=== PATIENT | female | born 1950 | race Caucasian/White ===

== ENCOUNTER 2020-11-28 23:52 | Inpatient (IN) | payer MEDICARE, OTHER ==
[~2020-11-28] VITALS: Ht 157.5 cm; Wt 49.0 kg
[2020-11-29] MEDS ORDERED: HYDR25TA4 PO (02:51)
[2020-11-29] MEDS ORDERED: DOCU250C14 PO (02:52)
[2020-11-29] MEDS ORDERED: BENA40TA8 PO (02:53)
[2020-11-29] MEDS ORDERED: LEVO88TA5 PO (02:54)
[2020-11-29] MEDS ORDERED: AMLO-213 PO (02:55)
[2020-11-29] MEDS ORDERED: ROSU10TA29 PO (02:56)
[2020-11-29] MEDS ORDERED: LAMO200T10 PO (02:58)
[2020-11-29] MEDS ORDERED: SITA25TA PO (02:59)
[2020-11-29] MEDS ORDERED: ARIP5TAB10 PO (03:00)
[2020-11-29] MEDS ORDERED: DIPH50CA4 PO (03:02)
[2020-11-29] MEDS ORDERED: OXCA150T13 PO (03:04)
[2020-11-29] MEDS ORDERED: MAGNESIUM HYDROXIDE 30 ML UDC PO PRN (03:30)
[2020-11-29] MEDS ORDERED: IBUP-1955 PO (03:31)
[2020-11-29 03:40] VITALS: BP 130/82
[2020-11-29] MEDS ORDERED: BLOOD SUGAR DIAGNOSTIC 1 EACH STRIP IN ONE (04:00)
--- NOTE | 2020-11-29 04:02 | NUR ---
ADMISSION NOTES: ADMITTED THIS 70Y/O FEMALE PATIENT ADMIT FROM [facility] /INTIALLY FROM HOME, PT. ADMITTED TO GPS ON 5150 HOLD , PER HOLD PT. REPORT BEING LONELY NOT HAVING ANY SOCIAL LIFE WANTED TO END IT ALL ,UPON FACE TO FACE ASSESSMENT PATIENT IS A&O X 2,3 DISHELVED ,PARANOID , DISORGNIZED ,DISHELVED ,EASILY GETS AGITATED ,DENIES SI /HI AT THIS TIME, PT. IS POOR HISTORIAN, POOR INSIGHT ,POOR JUDGEMENT , PT. REFUSED TO SIGNS ADMISSION CONSENT PAPERS , DUE TO MENTAL STATUS / DEPRESSED ,BOTH MD AWARE AND NOTIFIED OF THE ADMISSION, BELONGINGS CONTRABAND WERE DONE ,PT. RIGHTS DISCUSS BY MEDICAL RECORDS ANALYST , PROVIDE THE PT. WITH HANDBOOK, AND MEDICATIONS GUIDE, ENVIRONMENTAL SAFETY CHECK DONE, ENCOURAGED PT. VERBALIZED ANY FEELING CONCERN TO STAFF, ORIENT TO UNIT POLICY, NO ACUTE DISTRESS NOTED,VITAL SIGNS WNL ,DENIES ANY PAIN AT THIS TIME,WILL CONTINUE TO MONITOR FOR Q15 SAFETY AND BEHAVIOR.
[2020-11-29] MEDS ORDERED: diphenhydrAMINE HCL 50 MG CAPSULE PO PRN (07:00)
[2020-11-29 08:00] VITALS: BP 116/73
[2020-11-29] MEDS ORDERED: ENSURE ENLIVE CHOC 237 ML CAN PO SCH (08:00)
[2020-11-29] MEDS: LEVOTHYROXINE SODIUM 88 MCG TABLET PO SCH (08:30)
[2020-11-29] MEDS: DOCUSATE SODIUM 250 MG CAPSULE PO SCH (08:31)
[2020-11-29] MEDS: AMLODIPINE BESYLATE 10 MG TABLET PO SCH ×3 (08:31→08:44)
[2020-11-29] MEDS: HYDROCHLOROTHIAZIDE 25 MG TABLET PO SCH (08:31)
[2020-11-29] MEDS: LINAGLIPTIN 5 MG TABLET PO SCH ×3 (08:32→10:58)
[2020-11-29] MEDS: BENAZEPRIL HCL 20 MG TABLET PO SCH (08:34)
[2020-11-29] MEDS ORDERED: Medication Not On Formulary EA (Rosuvastatin Calcium 1 TAB) PO SCH (09:00)
--- NOTE | 2020-11-29 10:58 | NUR ---
Called the pharmacy and asked if we are carrying Januvia and per pharmacist no we are not carrying and we are carrying Tradjenta. Spoke to the pt. and was notified that we are not carrying Januvia and agreed to take Trajenta.
[2020-11-29] MEDS: ENSURE ENLIVE CHOC 237 ML CAN PO SCH ×2 (12:20→17:02)
[2020-11-29] MEDS: ACETAMINOPHEN 325 MG TABLET PO PRN (14:05)
[2020-11-29 16:00] VITALS: BP 139/51
[2020-11-29 20:18] VITALS: BP 127/69
[2020-11-29] MEDS: ATORVASTATIN 10 MG TABLET PO SCH (22:00)
--- NOTE | 2020-11-29 22:08 | NUR ---
RN NOTES: REFUSAL OF MEDICATION PT. REFUSED NIGHT SCHEDULE LIPITOR 20 MG PO X3, PT. STRONGLY REFUSED ,RISKS AND BENFITS EXPLINED, PER PT. NO LIPITOR PLEASE I AM OK ,WILL CONTINUE TO MONITOR.
[2020-11-29] MEDS: MIRTAZAPINE 15 MG TABLET PO SCH (22:48)
[2020-11-29] MEDS: LamoTRIgine 100 MG TABLET PO SCH (22:48)
[2020-11-30] MEDS: TEMAZEPAM 7.5 MG CAPSULE PO PRN (00:03)
--- NOTE | 2020-11-30 00:05 | NUR ---
RN NOTES :INSOMNIA PT.C/O UNABLE TO SLEEP, RESTORIL 7.5 MG PO PRN GIVEN PER PT.REQUEST, WILL CONTINUE TO MONITOR.
[2020-11-30 06:07] LABS: BASOPHILS % (AUTO) 0.6 % (0.0-2.0); HEMATOCRIT 40 % (33-45); HEMOGLOBIN 13.3 g/dL (11.5-14.8); LYMPHOCYTES # (AUTO) 1.5 /CMM (0.8-4.8); LYMPHOCYTES % (AUTO) 25.2 % (20.0-44.0); MEAN CORPUSCULAR HGB CONC 34 g/dl (31.0-36.0); MEAN CORPUSCULAR VOLUME 90 fL (82-100); MONOCYTES # (AUTO) 0.6 /CMM (0.1-1.30); MONOCYTES % (AUTO) 10.1 % (2.0-12.0); NEUTROPHILS # (AUTO) 3.7 /CMM (1.8-8.9); NEUTROPHILS % (AUTO) 63.1 % (43.0-81.0); PLATELET COUNT (AUTO) 264 /CMM (150-450); RED BLOOD CELL COUNT(AUTO) 4.39 MIL/uL (4.0-5.2); WHITE BLOOD COUNT (AUTO) 5.8 K/uL (4.3-11.0)
[2020-11-30 06:58] LABS: ALBUMIN 3.8 g/dL (3.4-5.0); BILIRUBIN,TOTAL 0.3 mg/dL (0.2-1.0); CALCIUM, SERUM 10.3 mg/dL (8.5-10.1); MAGNESIUM 2.3 mg/dL (1.8-2.4); POTASSIUM 3.5 mmol/L (3.5-5.1); THYROID STIMULATING HORMONE 0.376 uIU/mL (0.358-3.74); TOTAL PROTEIN, SERUM 7.6 g/dL (6.4-8.2)
[2020-11-30] MEDS: LEVOTHYROXINE SODIUM 88 MCG TABLET PO SCH (07:36)
[2020-11-30 08:00] VITALS: BP 116/73
[2020-11-30] MEDS: DOCUSATE SODIUM 250 MG CAPSULE PO SCH (08:09)
[2020-11-30] MEDS: LINAGLIPTIN 5 MG TABLET PO SCH (08:09)
[2020-11-30] MEDS: BENAZEPRIL HCL 20 MG TABLET PO SCH (08:10)
[2020-11-30] MEDS: HYDROCHLOROTHIAZIDE 25 MG TABLET PO SCH (08:10)
[2020-11-30] MEDS: AMLODIPINE BESYLATE 10 MG TABLET PO SCH (08:11)
[2020-11-30] MEDS: ENSURE ENLIVE CHOC 237 ML CAN PO SCH ×3 (08:11→16:05)
[2020-11-30] MEDS: ACETAMINOPHEN 325 MG TABLET PO PRN ×2 (09:23→15:51)
--- NOTE | 2020-11-30 15:50 | NUR ---
RN-CO: TYLENOL 650 MG PO GIVEN TO PT FOR C/O TOOTHACHE.
[2020-11-30 16:00] VITALS: BP 135/69
[2020-11-30] MEDS: MAG HYDROX/AL HYDROX/SIMETH 30 ML UDC PO PRN (18:36)
[2020-11-30 20:00] VITALS: BP 140/76
[2020-11-30] MEDS: LamoTRIgine 100 MG TABLET PO SCH (22:27)
[2020-11-30] MEDS: ATORVASTATIN 10 MG TABLET PO SCH (22:27)
[2020-11-30] MEDS: MIRTAZAPINE 15 MG TABLET PO SCH (22:27)
[2020-11-30] MEDS: LORAZEPAM 0.5 MG TABLET PO PRN (23:44)
--- NOTE | 2020-11-30 23:50 | NUR ---
GPS RN NOTES: PATIENT C/O ANXIETY. ATIVAN 0.5MG/1TAB GIVEN PO PRN ORDERED AT 2344. PATIENT IS CURRENTLY LAYING ON BED. WILL CONTINUE TO MONITOR.
[2020-12-01] MEDS: ACETAMINOPHEN 325 MG TABLET PO PRN ×2 (00:21→06:18)
--- NOTE | 2020-12-01 06:53 | NUR ---
GPS RN CLOSING NOTES: PATIENT LAYING ON BED AWAKE, A/O X3. SLEPT 5HOURS THIS SHIFT. NO S/S OF DISTRESS. RESPIRATION EVEN AND UNLABORED WITH EQUAL RISE AND FALL OF THE CHEST ON ROOM AIR. OFFERED FLUID TOLERATED. ALL PATIENT CARE NEEDS HAVE BEEN MET ANTICIPATED. WILL CONTINUE TO MONITOR FOR SAFETY, MOOD AND BEHAVIOR AND ENDORSE TO AM SHIFT.
[2020-12-01 08:00] VITALS: BP 153/78
[2020-12-01] MEDS: DOCUSATE SODIUM 250 MG CAPSULE PO SCH (08:02)
[2020-12-01] MEDS: AMLODIPINE BESYLATE 10 MG TABLET PO SCH (08:02)
[2020-12-01] MEDS: LEVOTHYROXINE SODIUM 88 MCG TABLET PO SCH (08:02)
[2020-12-01] MEDS: LINAGLIPTIN 5 MG TABLET PO SCH (08:03)
[2020-12-01] MEDS: ENSURE ENLIVE CHOC 237 ML CAN PO SCH ×3 (08:03→17:08)
[2020-12-01] MEDS: HYDROCHLOROTHIAZIDE 25 MG TABLET PO SCH (08:03)
[2020-12-01] MEDS: BENAZEPRIL HCL 20 MG TABLET PO SCH (08:03)
[2020-12-01] MEDS: LORAZEPAM 0.5 MG TABLET PO PRN (12:40)
--- NOTE | 2020-12-01 12:40 | NUR ---
RN NOTE: ANXIETY PT C/O INCREASING ANXIETY. PT REQUESTING ATIVAN. ATIVAN 0.5 MG PO PRN ADMINISTERED.
[2020-12-01 16:00] VITALS: BP 121/56
[2020-12-01 20:00] VITALS: BP 102/66
[2020-12-01] MEDS: MIRTAZAPINE 15 MG TABLET PO SCH (21:14)
[2020-12-01] MEDS: ATORVASTATIN 10 MG TABLET PO SCH (21:14)
[2020-12-01] MEDS: LamoTRIgine 100 MG TABLET PO SCH (21:14)
[2020-12-01] MEDS: TEMAZEPAM 7.5 MG CAPSULE PO PRN (21:46)
[2020-12-02] MEDS: MAG HYDROX/AL HYDROX/SIMETH 30 ML UDC PO PRN (00:32)
--- NOTE | 2020-12-02 00:32 | NUR ---
GPS RN NOTES: PATIENT C/O INDIGESTION. MAALOX 30ML/1CUP GIVEN PO PRN ORDERED AT 0032. WILL CONTINUE TO MONITOR.
--- NOTE | 2020-12-02 06:45 | NUR ---
GPS RN CLOSING NOTES: PATIENT LAYING ON BED AWAKE, A/O X3. SLEPT 3HOURS THIS SHIFT. NO S/S OF DISTRESS. RESPIRATION EVEN AND UNLABORED WITH EQUAL RISE AND FALL OF THE CHEST ON ROOM AIR. OFFERED FLUID TOLERATED. ALL PATIENT CARE NEEDS HAVE BEEN MET ANTICIPATED. WILL CONTINUE TO MONITOR FOR SAFETY, MOOD AND BEHAVIOR AND ENDORSE TO AM SHIFT.
[2020-12-02] MEDS: ENSURE ENLIVE CHOC 237 ML CAN PO SCH ×3 (08:25→17:38)
[2020-12-02] MEDS: LINAGLIPTIN 5 MG TABLET PO SCH (09:00)
[2020-12-02] MEDS ORDERED: clonazePAM 0.5 MG TABLET PO SCH (09:00)
[2020-12-02] MEDS: LEVOTHYROXINE SODIUM 88 MCG TABLET PO SCH (09:41)
[2020-12-02] MEDS: AMLODIPINE BESYLATE 10 MG TABLET PO SCH (09:41)
[2020-12-02] MEDS: DOCUSATE SODIUM 250 MG CAPSULE PO SCH (09:41)
[2020-12-02] MEDS: HYDROCHLOROTHIAZIDE 25 MG TABLET PO SCH (09:42)
[2020-12-02] MEDS: clonazePAM 0.5 MG TABLET PO SCH ×2 (10:00→17:39)
[2020-12-02 10:13] VITALS: BP 129/83
--- NOTE | 2020-12-02 11:58 | NUR ---
UPSET IN AM AND VERBALIZED AFRAID OF HER RM. SO RELOCATED TO [id number] HAPPIER.
[2020-12-02] MEDS: LORAZEPAM 0.5 MG TABLET PO PRN (13:30)
--- NOTE | 2020-12-02 13:30 | NUR ---
Family Contact: SW called the pts son, Phillip Salgado ([phone]), and left a message stating that the SW would like to discuss the pts treatment.
--- NOTE | 2020-12-02 13:32 | NUR ---
GIVEN ATIVAN FOR ANXIOUSNESS.
--- NOTE | 2020-12-02 13:56 | NUR ---
Initial Discharge Plan: Pt currently resides in an apartment by herself located at [address] [place] [address], [facility], [place] [address]; ([phone]). Per pt, she does not want to be alone. SW discussed SNF placement with the pt and she agreed. REYNA will work with the pt and the MD regarding appropriate discharge planning. SW will form a safe and proper discharge.
--- NOTE | 2020-12-02 14:47 | NUR ---
BP AT THIS TIME 118/62, HEART RATE 104.C/O HEADACHE.
[2020-12-02] MEDS: ACETAMINOPHEN 325 MG TABLET PO PRN ×2 (14:58→22:12)
--- NOTE | 2020-12-02 15:10 | NUR ---
GIVEN TYLENOL FOR HEADACHE.
[2020-12-02 16:00] VITALS: BP 126/67
[2020-12-02] MEDS: BENAZEPRIL HCL 20 MG TABLET PO SCH (16:13)
--- NOTE | 2020-12-02 16:17 | NUR ---
Family Contact: Pts son, Phillip Salgado ([phone]), contacted the SW and the SW discussed the pts treatment with him. He stated that the pt has been in a SNF before and left after three days because she did not like it. He expressed his concern that she will just leave again and SW stated that she will have daily conversations with the pt regarding placement. SW also stated that she could look into salvage determiner placements and discuss that with the pt and he agreed. SW will keep the pts son updated.
--- NOTE | 2020-12-02 18:30 | NUR ---
no change in status.
[2020-12-02 20:00] VITALS: BP 120/58
[2020-12-02] MEDS ORDERED: clonazePAM 0.5 MG TABLET PO ONE (20:30)
[2020-12-02] MEDS: LamoTRIgine 100 MG TABLET PO SCH (21:07)
[2020-12-02] MEDS: ATORVASTATIN 10 MG TABLET PO SCH (21:07)
[2020-12-02] MEDS: MIRTAZAPINE 15 MG TABLET PO SCH (21:07)
[2020-12-02] MEDS: TEMAZEPAM 7.5 MG CAPSULE PO PRN (22:12)
--- NOTE | 2020-12-02 22:15 | NUR ---
RN NOTE: Patient c/o toothache and difficulty falling asleep;requested for pain reliever and medication to help her fall asleep.Tylenol 650 mg PO and Restoril 7.5 mg PO given .
[2020-12-03 08:00] VITALS: BP 100/57
[2020-12-03] MEDS: ACETAMINOPHEN 325 MG TABLET PO PRN ×2 (08:26→20:00)
[2020-12-03] MEDS: LEVOTHYROXINE SODIUM 88 MCG TABLET PO SCH (08:45)
[2020-12-03] MEDS: DOCUSATE SODIUM 250 MG CAPSULE PO SCH (08:45)
[2020-12-03] MEDS: clonazePAM 0.5 MG TABLET PO SCH ×2 (08:45→17:52)
[2020-12-03] MEDS: LINAGLIPTIN 5 MG TABLET PO SCH (08:46)
[2020-12-03] MEDS: HYDROCHLOROTHIAZIDE 25 MG TABLET PO SCH (08:47)
[2020-12-03] MEDS: BENAZEPRIL HCL 20 MG TABLET PO SCH (08:47)
[2020-12-03] MEDS: AMLODIPINE BESYLATE 10 MG TABLET PO SCH (08:47)
--- NOTE | 2020-12-03 08:50 | NUR ---
GIVEN TYLENOL 650 MG PO FOR TOOTHACHE.
[2020-12-03] MEDS: ENSURE ENLIVE CHOC 237 ML CAN PO SCH ×3 (09:00→17:27)
[2020-12-03] MEDS ORDERED: clonazePAM 0.5 MG TABLET PO SCH (09:00)
--- NOTE | 2020-12-03 12:30 | NUR ---
DR. CUELLAR HERE,NOTIFIED OF PT'S TOOTHACHE,MEDS ORDERED.
[2020-12-03] MEDS: IBUPROFEN 400 MG TABLET PO PRN ×2 (13:31→21:40)
--- NOTE | 2020-12-03 13:31 | NUR ---
RN NOTE- TOOTH PAIN PERSISTS MOTRIN 400 MG GIVEN AT THIS TIME
[2020-12-03] MEDS: LORAZEPAM 0.5 MG TABLET PO PRN ×2 (14:33→21:40)
--- NOTE | 2020-12-03 14:33 | NUR ---
GIVEN ATIVAN FOR NERVOUSNESS.
[2020-12-03 16:00] VITALS: BP 105/57
--- NOTE | 2020-12-03 16:23 | NUR ---
NEEDY AND OUT AT DESK OFTEN.
--- NOTE | 2020-12-03 19:30 | NUR ---
GPS RN NOTE, RECEIVED PATIENT AWAKE AND IN BED, NO S/S OR COMPLAINTS OF PAIN AT THIS TIME. PATIENT IS DISPLAYING NO S/S OF APPARENT DISTRESS AT THIS TIME. PATIENT BREATHING IS UNLABORED WITH EQUAL RISE AND FALL OF THE CHEST. PATIENT IS ALERT AND ORIENTED X 3 ON ROOM AIR WITH A SPO2 99%. PATIENT IS COMPLIANT WITH MEDICATIONS, DEPRESSED, PARANOID, DISORGANIZED, COOPERATIVE, AND NEEDS REDIRECTION. PATIENT DENIES SUICIDAL AND HOMICIDAL IDEATIONS AT THIS TIME. PATIENT ASSISTED WITH TURNING AND REPOSITIONING Q2HR AND PRN FOR COMFORT AND CIRCULATION. PATIENT HAS NO NEEDS AT THIS TIME. PATIENT EDUCATED ON THE USE OF THE CALL [place]. PATIENT BED SIDE RAILS UP X 2 FOR SAFETY. PATIENT BED IS LOCKED, LOW, WITH BED ALARM ON. WILL CONTINUE TO MONITOR THIS PATIENT Q15 MINUTES WITH THE HELP OF STAFF TO MAINTAIN SAFETY.
[2020-12-03 19:43] VITALS: BP 113/68
--- NOTE | 2020-12-03 20:00 | NUR ---
GPS RN NOTE, PATIENT HAS A COMPLAINT OF A TOOTH ACHE AT 2 OUT 10 ON THE PAIN SCALE AND IS REQUESTING TYLENOL AT THIS TIME. PATIENT VITAL SIGNS ARE STABLE. GAVE TYLENOL 650 MG PO Q6HR PRN ORDERED. WILL REASSESS FOR PAIN AND I WILL CONTINUE TO MONITOR THIS PATIENT.
[2020-12-03] MEDS: ATORVASTATIN 10 MG TABLET PO SCH (21:40)
[2020-12-03] MEDS: LamoTRIgine 100 MG TABLET PO SCH (21:40)
[2020-12-03] MEDS: MIRTAZAPINE 15 MG TABLET PO SCH (21:40)
--- NOTE | 2020-12-03 21:40 | NUR ---
GPS RN NOTE, PATIENT HAS A COMPLAINT OF TOOTH PAIN AT 2 OUT 10 ON THE PAIN SCALE AND IS REQUESTING MOTRIN AT THIS TIME. PATIENT VITAL SIGNS ARE STABLE. GAVE MOTRIN 400MG PO Q8HR PRN ORDERED. WILL REASSESS FOR PAIN AND I WILL CONTINUE TO MONITOR THIS PATIENT.
--- NOTE | 2020-12-03 21:41 | NUR ---
GPS RN NOTE, PATIENT HAS A COMPLAINT OF FEELING ANXIOUS AND IS REQUESTING ATIVAN AT THIS TIME. PATIENT VITAL SIGNS ARE STABLE. GAVE ATIVAN 0.5MG PO Q6HR PRN ORDERED. WILL REASSESS FOR ANXIETY AND I WILL CONTINUE TO MONITOR THIS PATIENT.
[2020-12-03] MEDS: TEMAZEPAM 7.5 MG CAPSULE PO PRN (23:13)
--- NOTE | 2020-12-03 23:13 | NUR ---
GPS RN NOTE, PATIENT HAS A COMPLAINT OF NOT BEING ABLE TO SLEEP AND IS REQUESTING RESTORIL AT THIS TIME. PATIENT VITAL SIGNS ARE STABLE. GAVE RESTORIL 7.5MG PO HS PRN ORDERED. WILL REASSESS FOR INSOMNIA AND I WILL CONTINUE TO MONITOR THIS PATIENT.
[2020-12-04] MEDS: ACETAMINOPHEN 325 MG TABLET PO PRN ×2 (04:26→15:45)
--- NOTE | 2020-12-04 04:29 | NUR ---
GPS RN NOTE, PATIENT HAS A COMPLAINT OF A HEADACHE AT 2 OUT 10 ON THE PAIN SCALE AND IS REQUESTING TYLENOL AT THIS TIME. PATIENT VITAL SIGNS ARE STABLE. GAVE TYLENOL 650 MG PO Q6HR PRN ORDERED. WILL REASSESS FOR PAIN AND I WILL CONTINUE TO MONITOR THIS PATIENT.
[2020-12-04 08:00] VITALS: BP 135/67
[2020-12-04] MEDS: LEVOTHYROXINE SODIUM 88 MCG TABLET PO SCH (08:22)
[2020-12-04] MEDS: DOCUSATE SODIUM 250 MG CAPSULE PO SCH (08:25)
[2020-12-04] MEDS: ENSURE ENLIVE CHOC 237 ML CAN PO SCH ×3 (08:25→17:01)
[2020-12-04] MEDS: HYDROCHLOROTHIAZIDE 25 MG TABLET PO SCH (08:26)
[2020-12-04] MEDS: BENAZEPRIL HCL 20 MG TABLET PO SCH (08:26)
[2020-12-04] MEDS: AMLODIPINE BESYLATE 10 MG TABLET PO SCH (08:26)
[2020-12-04] MEDS: clonazePAM 0.5 MG TABLET PO SCH ×2 (08:26→17:01)
[2020-12-04] MEDS: LINAGLIPTIN 5 MG TABLET PO SCH (08:31)
[2020-12-04] MEDS: IBUPROFEN 400 MG TABLET PO PRN ×2 (09:37→20:05)
--- NOTE | 2020-12-04 09:39 | NUR ---
GPS/RN-NOTES PATIENT C/O TOOTHACHE AND REQUESTING FOR MOTRIN, MOTRIN 400MG P.O GIVEN PRN ORDER.
--- NOTE | 2020-12-04 10:40 | NUR ---
GPS/RN-NOTES PATIENT SLEEPING IN BED, EASILY AROUSE,NO ACUTE DISTRESS NOTED.
[2020-12-04] MEDS: LORAZEPAM 0.5 MG TABLET PO PRN (13:00)
--- NOTE | 2020-12-04 13:02 | NUR ---
GPS/RN-NOTES PATIENT REQUESTING ATIVAN FOR ANXIETY. ATIVAN 0.5MG P.O GIVEN PRN ORDER. WILL CONT. MONITORING FOR SAFETY AND BEHAVIOR.
--- NOTE | 2020-12-04 14:10 | NUR ---
GPS/RN-NOTES PATIENT LAYING IN BED CALM,NO ACUTE DISTRESS NOTED.
--- NOTE | 2020-12-04 14:29 | NUR ---
Probable Cause Hearing: Pts [id number] hold was upheld for danger to self and grave disability.
--- NOTE | 2020-12-04 14:34 | NUR ---
Murtaza Contact: REYNA called Hayley ([phone] ext [phone]), [employer], and left a voicemail stating that the SW would like to discuss the discharge plan.
--- NOTE | 2020-12-04 15:48 | NUR ---
GPS/RN-NOTES PATIENT C/O TOOTHACHE AND REQUESTING FOR TYLENOL ,TYLENOL 650 MG P.O GIVEN PRN ORDER.
[2020-12-04 16:00] VITALS: BP 127/69
--- NOTE | 2020-12-04 19:30 | NUR ---
GPS RN NOTE, RECEIVED PATIENT AWAKE AND IN BED, PATIENT HAS A COMPLAINT OF TOOTH PAIN AT 2 OUT 10 ON THE PAIN SCALE. PATIENT IS RECEIVING PAIN MEDICATION FOR THIS PAIN. PATIENT IS DISPLAYING NO S/S OF APPARENT DISTRESS AT THIS TIME. PATIENT BREATHING IS UNLABORED WITH EQUAL RISE AND FALL OF THE CHEST. PATIENT IS ALERT AND ORIENTED X 3 ON ROOM AIR WITH A SPO2 99%. PATIENT IS COMPLIANT WITH MEDICATIONS, DEPRESSED, PARANOID, DISORGANIZED, COOPERATIVE, AND NEEDS REDIRECTION. PATIENT DENIES SUICIDAL AND HOMICIDAL IDEATIONS AT THIS TIME. PATIENT ASSISTED WITH TURNING AND REPOSITIONING Q2HR AND PRN FOR COMFORT AND CIRCULATION. PATIENT HAS NO NEEDS AT THIS TIME. PATIENT EDUCATED ON THE USE OF THE CALL [place]. PATIENT BED SIDE RAILS UP X 2 FOR SAFETY. PATIENT BED IS LOCKED, LOW, WITH BED ALARM ON. WILL CONTINUE TO MONITOR THIS PATIENT Q15 MINUTES WITH THE HELP OF STAFF TO MAINTAIN SAFETY.
[2020-12-04 19:49] VITALS: BP 122/77
[2020-12-04 19:50] VITALS: BP 127/77
[2020-12-04] MEDS ORDERED: HYDROCODONE/APAP 5/325MG TABLET PO PRN (21:00)
[2020-12-04] MEDS: MIRTAZAPINE 15 MG TABLET PO SCH (21:09)
[2020-12-04] MEDS: ATORVASTATIN 10 MG TABLET PO SCH (21:09)
[2020-12-04] MEDS: LamoTRIgine 100 MG TABLET PO SCH (21:09)
--- NOTE | 2020-12-04 21:10 | NUR ---
GPS RN NOTE, PATIENT HAS A COMPLAINT OF TOOTH PAIN AT 5 OUT 10 ON THE PAIN SCALE AND IS REQUESTING SOMETHING STRONGER THAN MOTRIN AT THIS TIME. PATIENT VITAL SIGNS ARE STABLE. PAGED GERALDO MCMILLAN DNP AND INFORMED HIM OF MY FINDINGS. GERALDO MCMILLAN ORDERED NORCO 5-325 PO Q6HR PRN. ALL ORDERS NOTED AND CARRIED OUT. GAVE NORCO 5-325 PO Q6HR PRN ORDERED. WILL REASSESS PAIN AND I WILL CONTINUE TO MONITOR THIS PATIENT.
[2020-12-04] MEDS: TEMAZEPAM 7.5 MG CAPSULE PO PRN (23:07)
[2020-12-05] MEDS: MAG HYDROX/AL HYDROX/SIMETH 30 ML UDC PO PRN ×2 (06:37→14:22)
--- NOTE | 2020-12-05 06:39 | NUR ---
RN NOTE: MAALOX ADMINISTERED PATIENT C/O UPSET STOMACH & REQUESTED FOR MEDICINE. PRN MAALOX ADMINISTERED ORDERED. WILL CONTINUE TO MONITOR.
[2020-12-05 06:48] LABS: CALCIUM, SERUM 10.3 mg/dL (8.5-10.1); CREATININE 1.2 mg/dL (0.6-1.3); POTASSIUM 3.6 mmol/L (3.5-5.1)
[2020-12-05] MEDS: LEVOTHYROXINE SODIUM 88 MCG TABLET PO SCH (07:53)
[2020-12-05 08:15] VITALS: BP 115/67
[2020-12-05] MEDS: LINAGLIPTIN 5 MG TABLET PO SCH (08:31)
[2020-12-05] MEDS: DOCUSATE SODIUM 250 MG CAPSULE PO SCH (08:31)
[2020-12-05] MEDS: clonazePAM 0.5 MG TABLET PO SCH ×2 (08:31→17:57)
[2020-12-05] MEDS: AMLODIPINE BESYLATE 10 MG TABLET PO SCH (08:31)
[2020-12-05] MEDS: BENAZEPRIL HCL 20 MG TABLET PO SCH (08:32)
[2020-12-05] MEDS: HYDROCHLOROTHIAZIDE 25 MG TABLET PO SCH (08:32)
[2020-12-05] MEDS: ENSURE ENLIVE CHOC 237 ML CAN PO SCH ×3 (08:34→17:33)
--- NOTE | 2020-12-05 08:39 | NUR ---
Patient refused to eat BKF and bp-115/67 this morning, will hold bp and bs medications.
[2020-12-05] MEDS: IBUPROFEN 400 MG TABLET PO PRN (09:24)
--- NOTE | 2020-12-05 10:01 | NUR ---
Individual Intervention: SW met with the pt at bedside and discussed her current condition. Pt states that she has been suffering from tooth pain and wanted the SW to assist her with a dentist service. SW stated that she is in the process of being referred to [facility] facilities where she can receive assistance. SW reinforced that the pt will be discharged when the psychiatrist feels she is ready.
--- NOTE | 2020-12-05 10:32 | NUR ---
Murtaza Contact: Hayley ([phone] ext [phone]), [address] [employer], called the SW and stated that she wanted to discuss the pts discharge plan. SW stated that the plan is to send the pt to a SNF and the case supervisor stated that SNF and crisis residential treatment would both be appropriate for the pt. manager client support stated that she wants to be informed about the pts discharge.
--- NOTE | 2020-12-05 10:34 | NUR ---
SNF Referral: REYNA faxed a referral to [facility] with attn to Lady to the fax number: [phone].
[2020-12-05] MEDS: LORAZEPAM 0.5 MG TABLET PO PRN ×2 (12:44→20:06)
--- NOTE | 2020-12-05 14:40 | NUR ---
Family Contact: SW called the pts son, Phillip Salgado ([phone]), and informed him that the pt is going to be discharged to [facility] today and that they were informed that she is going to need to see a dentist as soon as possible.
--- NOTE | 2020-12-05 14:41 | NUR ---
Discharge Note: Pt will be discharged to [facility]) located at [address] [facility], [place] [address]; . SW informed pts son, Phillip Salgado ([phone]), of the placement. Pt will be transported via [facility] at 4PM. Upon discharge, the pt appears to be alert and oriented x4 (time, place, and self). Pt appears to be in a depressed mood and presents with a calm mood. Pt denies both suicidal and homicidal ideation as well as auditory and visual hallucinations. Pt appears to be ambulatory with an unsteady gait. Pt appears to be well groomed and appropriately dressed. Pt will continue to be under the care of her psychiatrist, Dr. Soto, located at [address] [place] [address]; and medical sales, Dr. Cook, located at [address], [place] [address]; . The choice of vendor form and multidisciplinary exit care form were done, printed, signed, and given to the patient.
--- NOTE | 2020-12-05 15:17 | NUR ---
Patient discharge to [facility], given report Gretta/LEN.
[2020-12-05 16:00] VITALS: BP 124/62
[2020-12-05 20:06] VITALS: BP 135/68
--- NOTE | 2020-12-05 21:15 | NUR ---
machine i cutter Note: Pt discharged to [facility] AT 1915 in stable condition. Patient is compliant with medications, and cooperative with treatment plans. Patient denies suicidal ideation, denies homicidal ideation, and denies auditory visual hallucination. Behavior improved, vital sign stable, psychiatric tx plans met, and medical tx plans deferred for continual monitoring. Educated pt about after care plan and copy provided. returned patients personal belongings. Medications reconciled with dr. Soto and dr.Sam Waldron, prescriptions given and explained to patient. Report given to Gretta keating. Patient signed discharge paperwork, patient refused discharge photo. Patient left the unit at 2114 with 2 EMT's via [facility].
== END 2020-12-05 21:17 | DRG 885 ==
LOC: GPS 11-29 02:12
PROVIDERS: ADMIT Psychiatry & Neurology Psychiatry
DX: F31.30 Bipolar disorder, current episode depressed, mild or moderate severity, unspecified (principal); R45.851 Suicidal ideations; E11.9 Type 2 diabetes mellitus without complications; E03.9 Hypothyroidism, unspecified; Z87.891 Personal history of nicotine dependence; I10 Essential (primary) hypertension; E83.52 Hypercalcemia; F41.9 Anxiety disorder, unspecified; F10.11 Alcohol abuse, in remission; Y90.9 Presence of alcohol in blood, level not specified; K02.9 Dental caries, unspecified; T50.2X5A Adverse effect of carbonic-anhydrase inhibitors, benzothiadiazides and other diuretics, initial encounter; Y92.9 Unspecified place or not applicable; E86.1 Hypovolemia; F39 Unspecified mood [affective] disorder
CPT/HCPCS: 36415; 80048-TC; 80053-TC; 80061-TC; 82306; 82310-TC; 82962-TC; 83735-TC; 83970; 84100-TC; 84443-TC; 85025-TC; 87081-TC; 97116-TC; 97530-TC